=== PATIENT | female | born 1975 | race Caucasian/White ===

== ENCOUNTER → 2016-07-19 | Outpatient (CLI) | payer BC | END | disposition home or self-care (01) | LOC: C.LAB 06:53 | PROVIDERS: ATTEND Obstetrics & Gynecology Reproductive Endocrinology | DX: Z32.00 Encounter for pregnancy test, result unknown (principal) ==

== ENCOUNTER → 2016-07-21 | Outpatient (CLI) | payer BC | END | disposition home or self-care (01) | LOC: C.LAB 06:41 | PROVIDERS: ATTEND Obstetrics & Gynecology Reproductive Endocrinology | DX: Z32.00 Encounter for pregnancy test, result unknown (principal) ==

== ENCOUNTER → 2016-07-24 | Outpatient (CLI) | payer BC | END | disposition home or self-care (01) | LOC: C.LAB 06:43 | PROVIDERS: ATTEND Obstetrics & Gynecology Reproductive Endocrinology | DX: Z32.00 Encounter for pregnancy test, result unknown (principal) ==

== ENCOUNTER → 2016-09-15 | Outpatient (CLI) | payer BC ==
[~2016-09-15] MED LIST: ASPI81TA28 PO; BIOT1CAP8; CHOL1000 PO; PRENTAB26 PO
[2016-09-15 16:46] LABS: BASO % 0.2 %; BASO ABS # 0.02 K/uL (0-0.2); COMPLETE YES; EOS % 1.2 %; HEMATOCRIT 34.9 % (37-47); IG% 0.2 %; LYMPH % 21.9 %; LYMPH ABS # 2.09 K/uL (1.2-3.4); MEAN CELL VOLUME 92.8 fL (80-100); MEAN CORPUSCULAR HEMOGLOBIN 32.7 pg (25-34); MEAN CORPUSCULAR HGB CONC 35.2 g/dl (32-36); MONO % 7.9 %; NEUT % 68.6 %; PLATELET COUNT 200 K/uL (130-400); RED BLOOD COUNT 3.76 M/uL (4.2-5.4); WHITE BLOOD COUNT 9.56 K/uL (4.8-10.8)
== END | disposition home or self-care (01) ==
LOC: C.LAB1850 15:06
PROVIDERS: ATTEND Obstetrics & Gynecology
DX: O09.519 Supervision of elderly primigravida, unspecified trimester (principal); Z3A.00 Weeks of gestation of pregnancy not specified

== ENCOUNTER → 2016-09-15 | Outpatient (CLI) | payer BC ==
[2016-09-15 18:30] LABS: URINE APPEARANCE CLEAR (CLEAR); URINE BILIRUBIN NEG (NEG); URINE COLOR YELLOW; URINE NITRITE NEG (NEG); URINE PH 5.5 (4.5-7.5); URINE SPECIFIC GRAVITY 1.016 (1.000-1.030); UROBILINOGEN NEG (NEG)
[2016-09-15 18:33] LABS: MANUAL MICROSCOPIC REQUIRED? NO; REVIEW REQ? NO
[2016-09-19 00:45] LABS: CHLAMYDIA TRACH RNA*** NOT DETECTED (NOT DETECTED); GC (NEIS GONORRHOEAE)RNA** NOT DETECTED (NOT DETECTED)
== END | disposition home or self-care (01) ==
LOC: C.LABSPEC 17:49
PROVIDERS: ATTEND Obstetrics & Gynecology
DX: O09.519 Supervision of elderly primigravida, unspecified trimester (principal); Z3A.00 Weeks of gestation of pregnancy not specified

== ENCOUNTER → 2016-10-06 | Outpatient (CLI) | payer BC ==
[2016-10-06 11:23] LABS: GTGD 50 Grams
== END | disposition home or self-care (01) ==
LOC: C.LAB1850 09:44
PROVIDERS: ATTEND Obstetrics & Gynecology
DX: O09.819 Supervision of pregnancy resulting from assisted reproductive technology, unspecified trimester (principal); Z3A.00 Weeks of gestation of pregnancy not specified

== ENCOUNTER 2016-10-07 11:08 | Outpatient (CLI) | payer BC | END 2016-10-07 12:05 | disposition home or self-care (01) | LOC: C.OPB 11:08 → C.LD 11:09 → C.OPB 12:05 | PROVIDERS: ATTEND Obstetrics & Gynecology | DX: O46.92 Antepartum hemorrhage, unspecified, second trimester (principal); O09.523 Supervision of elderly multigravida, third trimester; Z3A.16 16 weeks gestation of pregnancy ==

== ENCOUNTER → 2016-12-29 | Outpatient (CLI) | payer BC ==
[2016-12-29 16:38] LABS: HEMATOCRIT 34.2 % (37-47)
[2016-12-29 18:54] LABS: GTGD 50 Grams
== END | disposition home or self-care (01) ==
LOC: C.LAB1850 15:04
PROVIDERS: ATTEND Obstetrics & Gynecology
DX: O09.512 Supervision of elderly primigravida, second trimester (principal); Z3A.00 Weeks of gestation of pregnancy not specified

== ENCOUNTER → 2016-12-29 | Outpatient (CLI) | payer BC ==
[2016-12-29 18:21] LABS: URINE APPEARANCE CLEAR (CLEAR); URINE BILIRUBIN NEG (NEG); URINE COLOR YELLOW; URINE NITRITE NEG (NEG); URINE PH 6.5 (4.5-7.5); URINE SPECIFIC GRAVITY 1.016 (1.000-1.030); UROBILINOGEN NEG (NEG)
[2016-12-29 18:22] LABS: MANUAL MICROSCOPIC REQUIRED? NO; REVIEW REQ? NO
== END | disposition home or self-care (01) ==
LOC: C.LABSPEC 17:32
PROVIDERS: ATTEND Obstetrics & Gynecology
DX: O09.512 Supervision of elderly primigravida, second trimester (principal); Z3A.00 Weeks of gestation of pregnancy not specified

== ENCOUNTER → 2017-02-23 | Outpatient (CLI) | payer BC | END | disposition home or self-care (01) | LOC: C.LABSPEC 17:34 | PROVIDERS: ATTEND Obstetrics & Gynecology | DX: O09.512 Supervision of elderly primigravida, second trimester (principal); Z3A.00 Weeks of gestation of pregnancy not specified ==

== ENCOUNTER 2017-03-23 00:13 | Inpatient (IN) | payer BC ==
[~2017-03-23] VITALS: Ht 167.6 cm; Wt 80.5 kg
[2017-03-23] MEDS ORDERED: LACTATED RINGER'S 1000ML 1,000 ML IV PRN (00:39)
[2017-03-23 01:13] LABS: HEMATOCRIT 39.6 % (37-47); MEAN CELL VOLUME 97.8 fL (80-100); MEAN CORPUSCULAR HEMOGLOBIN 34.3 pg (25-34); MEAN PLATELET VOLUME 12.7 fL (7.4-10.4); PLATELET COUNT 151 K/uL (130-400); RED BLOOD COUNT 4.05 M/uL (4.2-5.4); WHITE BLOOD COUNT 14.22 K/uL (4.8-10.8)
[2017-03-23 01:22] LABS: MEAN CORPUSCULAR HGB CONC 35.1 g/dl (32-36)
[2017-03-23] MEDS ORDERED: PRENTAB26 PO (02:51)
[2017-03-23] MEDS ORDERED: CHOL1000 PO (02:51)
[2017-03-23] MEDS ORDERED: ASPI81TA28 PO (02:51)
[2017-03-23] MEDS ORDERED: BIOT1CAP8 (02:51)
[2017-03-23 02:55] VITALS: Ht 167.6 cm; Wt 80.5 kg
[2017-03-23] MEDS: LACTATED RINGER'S 1000ML 1,000 ML IV SCH ×3 (09:46→17:58)
[2017-03-23] MEDS ORDERED: FENTANYL 2MCG/ML ROPIV 1.25MG/ML 100ML BAG EPI ONE (09:48)
[2017-03-23] MEDS ORDERED: EpHEDrine SULFATE INJ 50 MG/ML AMP ONE (09:48)
[2017-03-23] MEDS ORDERED: FENTANYL CITRATE INJ 50 MCG/1 ML 2 ML VIAL ONE (09:48)
[2017-03-23] MEDS ORDERED: BUPIVACAINE 0.25% 30 ML VIAL ONE ×2 (09:48→22:44)
[2017-03-23] MEDS ORDERED: LACTATED RINGER'S 1000ML 500 ML IV PRN ×2 (10:47→14:11)
[2017-03-23] MEDS ORDERED: NALOXONE HCL INJ 1 MG in SODIUM CHLORIDE 0.9% 1000ML 1,000 ML IV PRN (10:47)
[2017-03-23] MEDS ORDERED: EpHEDrine SULFATE INJ 50 MG/ML AMP IV PRN (11:00)
[2017-03-23] MEDS ORDERED: ONDANSETRON INJ 2 MG/ML 2 ML VIAL IV PRN (11:00)
[2017-03-23] MEDS ORDERED: DiphenhydrAMINE HCL 50 MG/ML VIAL IV PRN (11:00)
[2017-03-23] MEDS ORDERED: NALBUPHINE HCL INJ 10 MG/ML AMP IV PRN (11:00)
[2017-03-23] MEDS ORDERED: NALOXONE HCL INJ 0.4 MG/1 ML VIAL/CARP IV PRN (11:00)
[2017-03-23] MEDS ORDERED: OXYTOCIN 30 UNITS/500ML NSS IV PRN (14:15)
[2017-03-23] MEDS: FENTANYL 2MCG/ML ROPIV 1.25MG/ML 100ML BAG EPI PRN ×2 (19:31→21:23)
[2017-03-24] MEDS ORDERED: LACTATED RINGER'S 1000ML 500 ML IV PRN (01:15)
[2017-03-24] MEDS ORDERED: OXYTOCIN 30 UNITS/500ML NSS IV PRN ×2 (01:15→05:15)
[2017-03-24] MEDS: FENTANYL 2MCG/ML ROPIV 1.25MG/ML 100ML BAG EPI PRN (01:32)
[2017-03-24] MEDS ORDERED: BENZOCAINE 20% AER SPR 82.5 GM CAN EXT PRN (05:15)
[2017-03-24] MEDS ORDERED: SUPERCREAM 0.870 % 15GM JAR EXT PRN (05:15)
[2017-03-24] MEDS ORDERED: LANOLIN OINT EXT PRN ×2 (05:15)
[2017-03-24] MEDS ORDERED: ACETAMINOPHEN/CODEINE 300/30MG TAB PO PRN ×2 (05:15)
--- NOTE | 2017-03-24 05:28 | Anesthesia Procedure Note ---
Anesthesia Epidural Removal Nt Date & Time Mar 24, 2017 at 05:26 Vital Signs Pain Intensity: 1.0 Notes Mental Status: alert / awake / arousable, participated in evaluation Nausea / Vomiting: adequately controlled Pain: adequately controlled Airway Patency, RR, SpO2: stable & adequate BP & HR: stable & adequate Hydration State: stable & adequate Neuraxial Anesthesia: was administered Anesthetic Complications: no major complications apparent, pt satisfied with anesthetic care Epidural: removed without complications, with tip intact
[2017-03-24 08:00] VITALS: BP 99/53; PULSE 76; TEMP 37.1; O2SAT 97
[2017-03-24] MEDS: PRENATAL VITAMIN TAB PO SCH (08:23)
[2017-03-24] MEDS: IBUPROFEN 600 MG TAB PO PRN ×4 (08:23→23:26)
[2017-03-24] MEDS: ACETAMINOPHEN 325 MG TAB PO PRN ×2 (08:23→20:25)
[2017-03-24] MEDS: DOCUSATE SODIUM 100 MG CAP PO SCH ×2 (08:24→20:26)
--- NOTE | 2017-03-24 08:59 | DELIVERY SUMMARY ---
DATE OF OPERATION: 03/24/2017 DATE OF DELIVERY: 03/24/2017 The patient is a 41-year-old 5, para 0-0-4-0 EDC of 03/22/2017 who presented with spontaneous rupture of membranes for clear fluid at 2100 hours on 03/22/2017. She had a history of LEEP in the past, there was slow dilation because of scar tissue and Pitocin augmentation was begun after she received epidural analgesia. An IUPC catheter was placed because of category 2 tracing. there were episodes of moderate variables during the course of the labor although there was always good beat to beat variability and good return to baseline with accels in between contractions. She progressed to full dilation and after pushing 3 hours in a variety of positions including knee chest which the baby seemed to tolerate the best she delivered a viable male over intact perineum. Mouth and nasopharynx were suctioned for thick meconium on the perineum. A loose nuchal cord x2 was reduced before delivering the rest of the infant. The infant was then placed on the mother's abdomen for further stimulation and attention. The cord was clamped and cut. Dr. Calixto was in attendance as rand sewer to further assess the baby. The placenta was extracted as it was caught in the cervix. This was removed intact with a 3-vessel cord. Also of note, there was a true knot in the cord of the infant as well as minimal [place]'s jelly present. The was spontaneously crying and moving all 4 limbs. Apgars were 5/9. A first degree perineal vaginal laceration was repaired with 3-0 chromic in the usual fashion. Estimated blood loss was 400 mL. Mother and were doing well after delivery. Bleeding was controlled with dilute Pitocin. I attest to the content of the Intraoperative Record and any orders documented therein. Any exceptions are noted below. MTDD
[2017-03-24 11:50] VITALS: BP 103/60; PULSE 72; TEMP 36.7
[2017-03-24 15:33] VITALS: BP 78/43; PULSE 72; TEMP 36.8
[2017-03-24 19:30] VITALS: BP 100/58; PULSE 75; TEMP 36.7
[2017-03-24 23:30] VITALS: BP 99/60; PULSE 74; TEMP 36.9
[2017-03-25 04:15] VITALS: BP 98/57; PULSE 74; TEMP 37
[2017-03-25 07:15] VITALS: BP 103/57; PULSE 73; TEMP 36.6; O2SAT 99
[2017-03-25 07:17] LABS: HEMATOCRIT 28.7 % (37-47)
[2017-03-25] MEDS: DOCUSATE SODIUM 100 MG CAP PO SCH ×2 (08:56→20:07)
[2017-03-25] MEDS: IBUPROFEN 600 MG TAB PO PRN ×2 (08:56→20:07)
[2017-03-25] MEDS: PRENATAL VITAMIN TAB PO SCH (08:56)
--- NOTE | 2017-03-25 09:51 | Progress Note ---
Subjective Mar 25, 2017. Subjective conversation w/ patient, physical exam Ambulation: ambulating normally Voiding: no voiding problems Passing Gas: Yes Diet Tolerance: Regular Diet Lochia: Moderate Feeding Type: Breast Feeding Review of Systems Constitutional: No problem reported Respiratory: No problem reported Cardiac: No problem reported Breast: No problem reported Abdomen: No problem reported Female : No problem reported Objective Vital Signs Date Time Temp Pulse Resp B/P (MAP) Pulse Ox O2 Delivery O2 Flow Rate FiO2 03/25/17 04:15 37.0 74 18 98/57 (71) Room Air 03/24/17 23:30 36.9 74 18 99/60 (73) Room Air 03/24/17 23:30 Room Air 03/24/17 19:30 Room Air 03/24/17 19:30 36.7 75 16 100/58 (72) 03/24/17 15:33 36.8 72 18 78/43 (55) Room Air 03/24/17 15:33 Room Air 03/24/17 11:50 36.7 72 16 103/60 (74) Room Air Physical Exam General Appearance: WELL-APPEARING, NO APPARENT DISTRESS Respiratory/Chest: no respiratory distress Cardiovascular: regular rate, rhythm Abdomen: non tender, soft Fundus: Firm Extremities: normal inspection Laboratory Results Last 24 Hours Test 03/25/17 06:03 Hemoglobin 9.8 g/dL Hematocrit 28.7 % Assessment and Plan Post- Day#: 1 Continue Routine Care: PPD#1 doing well. Plans to stay until tomorrow. Continue routine care.
[2017-03-25 16:30] VITALS: BP 109/59; PULSE 73; TEMP 36.7
[2017-03-25] MEDS ORDERED: BISACODYL 5 MG TABEC PO SCH (20:00)
[2017-03-25 23:10] VITALS: BP 99/61; PULSE 73; TEMP 36.9
[2017-03-26] MEDS: IBUPROFEN 600 MG TAB PO PRN ×2 (05:41→10:04)
--- NOTE | 2017-03-26 07:39 | Progress Note ---
Subjective Mar 26, 2017. Subjective conversation w/ patient, physical exam, chart review, lab review Ambulation: ambulating normally Voiding: no voiding problems Passing Gas: Yes Diet Tolerance: Regular Diet Lochia: Small Feeding Type: Breast Feeding Pain: Some low cramping Comment: Found pt standing at bedside, very happy, denies any acute concerns. Review of Systems Constitutional: No fever, No chills Respiratory: No cough, No shortness of breath Cardiac: No chest pain Abdomen: No nausea, No vomiting, No diarrhea Female : No dysuria Objective Vital Signs Date Time Temp Pulse Resp B/P (MAP) Pulse Ox O2 Delivery O2 Flow Rate FiO2 03/25/17 23:10 Room Air 03/25/17 23:10 36.9 73 18 99/61 (74) Room Air 03/25/17 16:30 36.7 73 16 109/59 (76) Room Air 03/25/17 16:30 Room Air Physical Exam General Appearance: WELL-APPEARING, WD/WN, NO APPARENT DISTRESS Respiratory/Chest: lungs clear, normal breath sounds, no respiratory distress Cardiovascular: regular rate, rhythm, no murmur Abdomen: normal bowel sounds, non tender, soft Fundus: Firm, Tender (minimally'), Relation to Umbilicus (at umbilicus) Extremities: normal range of motion, no calf tenderness, + pedal edema (1+ bilaterally) Assessment and Plan Post- Day#: 2 Continue Routine Care: 41F s/p vaginal delivery, now PPD #2. - Blood type A positive. GBS negative. Rubella immune. - Vital signs reviewed and stable. - Pain controlled with motrin and tylenol. - No leg swelling or tenderness on calf palpation. Encourage ambulation. - Encourage breast feeding. - Hemoglobin pre-delivery 13.9, post-delivery 9.8. Bleeding has improved. Continue to monitor clinically. - Continue routine post-vaginal delivery care. - Pt agreed with above plan, all current questions answered. Ovi Romero MD, PGY1 [employer] Physician Supervision Note: I discussed with Dr. Romero the history and exam. I discussed the case with the resident and agree with the findings and plan as documented in the note. Patient is soundly sleeping - will check on pt upon awakening. Any exceptions or clarifications are listed here: PPD#2 doing well. Discharge to home today. Followup in office 6w. Documented By: Rosmery Miller Resident Tracking Resident Involvement: Resident Care Provided Care Provided: OB Delivery (OB rounds)
[2017-03-26 07:45] VITALS: BP 108/63; PULSE 76; TEMP 37; O2SAT 99
--- NOTE | 2017-03-26 07:59 | Discharge Instructions ---
Discharge Instructions Date of Service Mar 26, 2017. Admission Reason for Admission: LABOR Discharge Discharge Diagnosis / Problem: Recovery from vaginal delivery Discharge Goals Goal(s): Routine recovery after delivery Medications Continue Dispensed Medications: supercream, dermaplast, tucks, lansinoh Activity Recommendations Activity Limitations: per Instructions/Follow-up section . Instructions / Follow-Up Instructions / Follow-Up ACTIVITY RECOMMENDATIONS: * Gradual return to full activity over the next 2-3 weeks. * No lifting - nothing heavier than baby over the next 2-3 weeks. * Do not engage in vigorous exercise, sexual activity or sports until cleared by your physician. * Do not drive or operate any motorized equipment until cleared by your physician. * You may shower/bathe daily. MEDICATIONS: For discomfort or pain, you may use Acetaminophen (Tylenol), Ibuprofen (Advil), or Naproxen (Aleve) following the package directions. For constipation you may use Colace following the package directions. BREAST CARE: If you are not breast feeding: * Wear a supportive bra 24 hours a day for one to two weeks. * Avoid stimulating your breasts and nipples as much as possible during the first few weeks after delivery. * When taking a shower, have the warm water hit your back, not breasts. * When your breasts feel full, apply ice packs. Usually three to four times a day helps ease the discomfort. * Take a mild pain medication (Tylenol / Motrin) when you are uncomfortable. If breast feeding: * Use breast milk to lubricate nipples. Lansinoh cream may be used for sore nipples. You do not need to remove cream prior to breast feeding. If using a different brand of cream, check the label for directions regarding removal of cream prior to nursing. * Wear a supportive bra. * If having problems with breasts or breast feeding, call a recruiting and selection consultant or your health care provider. EPISIOTOMY CARE: After delivery, if you have an episiotomy (stitches), the following steps will ease discomfort and aid healing. * For the first 24 hours after delivery, place ice packs next to your episiotomy to help reduce swelling. * After the first 24 hour-period, sitz baths, either portable or in the tub, are suggested. A shower with a shower arm sprayed over the episiotomy may be comforting. * Alia care should be done after each voiding and bowel movement. Squirt warm water from a plastic bottle over the perineum (region of the body between the anus and urinary opening) and pat dry. * Use Dermoplast to ease discomfort. Shake container. [place] directly over the episiotomy. Place a Tucks on a clean sanitary pad next to your episiotomy. SPECIAL CARE INSTRUCTIONS: When you are discharged from the hospital, it is important for you to follow the instructions listed below: * During the first week at home, you should be able to care for yourself and your baby. In addition, the usual light household activities are encouraged. * Limit your activities to the way you feel. Do not try to clean the house or move furniture. Be sensible. * If you actively engage in sports and have done so up until the time of your delivery, you may resume these activities as soon as you feel able. This may take up to one month or even longer. Use good judgment. * Continue to take your vitamins for at least six weeks after the of your baby. * Your diet need not be limited unless you were on a special diet before your delivery. Breast-feeding mothers need around 2500 calories per day and at least 64-80 ounces of fluid per day (8 to 10 glasses). * You should eat foods from the four major food groups. Crash diets or fad diets are to be avoided. Eating lean meats, fresh fruits and vegetables, low-fat dairy products, high fiber foods and a regular exercise program, will help you get back to your pre- weight without putting your health at risk. * Constipation is sometimes a problem after delivery. Take a mild laxative as needed. If breast feeding, Milk of Magnesia is acceptable to use. You may use a suppository or Fleets enema if no episiotomy. * A daily shower or tub bath is suggested. Be sure to thoroughly and gently dry the perineum. * A bloody vaginal discharge will usually continue until around four weeks post . A small amount of bleeding may continue for as long as six weeks. Vaginal discharge changes from the bright red bleeding after delivery to pink then brownish and finally yellowish-pink before becoming white and disappearing. * Bleeding may increase with activity. Your first period may come in 4-8 weeks. If you are breast feeding, your period may be delayed even longer. * [place] (sex) can begin whenever both you and your partner feel comfortable and do not have any form of genital infection. It is recommended that you wait at least six weeks for internal and external healing to occur. If you have questions, please talk to your health care practitioner. A condom should be used to prevent infection and . * Foreplay, gentle intercourse and lubrication is very important the first several times to prevent pain. A water-based lubricant such as K-Y jelly or Astroglide may be used. * If you have RH negative blood and your baby is RH positive, you will receive RHOGAM by injection prior to discharge. The nurse will give you a card to keep with you that has the date and place that you received RHOGAM after delivery. * During your care, you had a Rubella screen done to check for the presence of rubella antibodies in your blood. If your test was negative, you will receive a Rubella vaccine prior to discharge. This vaccine may cause a fever, soreness at the injection site and flu-like symptoms. If these symptoms persist, notify your health care practitioner. is not advised for one month after a Rubella vaccine. * Verbalizes understanding of car seat law as reviewed with patient nursing. * Car Seat hand-out given and reviewed with patient by nursing. * Shaken baby information reviewed with patient by nursing. Call you doctor if: * Heavy bleeding (saturating several pads an hour) or passing clots the size of your fist. * A fever >101 degrees F (38.3 degrees C) on two occasions four hours apart and /or chills. * Unusual pain in the pelvic or vaginal areas. * "Baby Blues" lasting longer than two weeks. If you have any questions or concerns, call your health care practitioner at . FOLLOW UP VISIT: * Please call the office at to schedule a 6 week examination. It is important you keep this appointment. It is important for you to make arrangements for either yearly or twice yearly check-ups thereafter. Current Hospital Diet Patient's current hospital diet: Regular OB Diet Discharge Diet Recommended Diet: Regular OB Diet Pending Studies Studies pending at discharge: no Medical Emergencies . Who to Call and When: Medical Emergencies: If at any time you feel your situation is an emergency, please call 911 immediately. . Non-Emergent Contact Non-Emergency issues call your: Religious Education Director . . "Provider Documentation" section prepared by Ovi Romero. . VTE Core Measure Inpt VTE Proph given/why not?: Treatment not indicated
[2017-03-26] MEDS: DOCUSATE SODIUM 100 MG CAP PO SCH (08:41)
[2017-03-26] MEDS: PRENATAL VITAMIN TAB PO SCH (08:41)
[2017-03-26 14:40] VITALS: BP_DIAS 63; PULSE 76; TEMP 37
== END 2017-03-26 14:40 | disposition home or self-care (01) | DRG 775 ==
LOC: C.OPB 00:13 → C.LD 00:14 → C.OPB 00:43 → C.LD 00:43 → C.OBG 03-24 07:55
PROVIDERS: ADMIT Obstetrics & Gynecology; ATTEND Obstetrics & Gynecology
PROC: 0HQ9XZZ Repair Perineum Skin, External Approach (ICD-10-PCS; principal; 2017-03-24)
PROC: 10E0XZZ Delivery of Products of Conception, External Approach (ICD-10-PCS; principal; 2017-03-24)
DX: O69.82X1 Labor and delivery complicated by other cord entanglement, without compression, fetus 1 (principal); O70.0 First degree perineal laceration during delivery; O09.513 Supervision of elderly primigravida, third trimester; Z37.0 Single live birth; Z3A.40 40 weeks gestation of pregnancy

== ENCOUNTER → 2017-05-08 | Outpatient (CLI) | payer BC ==
[~2017-05-08] MED LIST changes: -ASPI81TA28 PO
== END | disposition home or self-care (01) ==
LOC: C.PAPS 09:44
PROVIDERS: ATTEND Obstetrics & Gynecology
DX: Z12.4 Encounter for screening for malignant neoplasm of cervix (principal)

== ENCOUNTER → 2017-05-08 | Outpatient (CLI) | payer BC ==
[2017-05-09 13:58] LABS: MANUAL MICROSCOPIC REQUIRED? NO; REVIEW REQ? NO; URINE APPEARANCE CLEAR (CLEAR); URINE BILIRUBIN NEG (NEG); URINE COLOR YELLOW; URINE NITRITE NEG (NEG); URINE PH 5.5 (4.5-7.5); URINE SPECIFIC GRAVITY 1.016 (1.000-1.030); UROBILINOGEN NEG (NEG)
[2017-05-09 13:59] LABS: URINE EPITHELIAL CELL AUTO 0-5 /lpf (0-5)
== END | disposition home or self-care (01) ==
LOC: C.LABSPEC 17:26
PROVIDERS: ATTEND Obstetrics & Gynecology
DX: Z01.419 Encounter for gynecological examination (general) (routine) without abnormal findings (principal)